=== PATIENT | female | born 1955 | race Caucasian/White ===

== ENCOUNTER → 2018-01-29 | Outpatient (CLI) | payer OTHER ==
[~2018-01-29] MED LIST: AMBIEN10 MG PO; ASPIRIN E.C.81 M1 PO; CALCIUM 500 +1 EAC4 PO; CELEXA40 MG PO; CRESTOR20 MG PO; FISH OIL300 MG PO; KAPIDEX60 MG PO; LIPITOR40 MG PO; Levothroid,Synthroid PO; RESTASIS 01 DROP/0.4 BOTH EYES; ROGAINE60 ML TP; THERAGRAN1 TABLET PO; TOPAMAX25 MG PO; TYLENOL REGULA325 MG PO; Tylenol Regular Stre PO; VIACTIV CALC1 TABLET PO; VITAMIN D-32000 UNI2 PO; Vitamin D PO; XANAX0.25 MG PO
== END | disposition home or self-care (01) ==
LOC: RAD 12:25
DX: M79.605 Pain in left leg (principal)
CPT/HCPCS: 93971